=== PATIENT | female | born 2000 | race Caucasian/White ===

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

== ENCOUNTER → 2023-06-04 | Outpatient (CLI) | payer BC | LOC: COL.VAS 08:42 | DX: R00.2 Palpitations (principal); R55 Syncope and collapse ==